=== PATIENT | female | born 1995 | race African-American/Black ===

== ENCOUNTER 2018-12-08 17:17 | Observation (INO) | payer SELFPAY ==
[~2018-12-08] VITALS: Ht 157.5 cm; Wt 77.1 kg
[2018-12-08 19:16] LABS: CLARITY URINE CLOUDY (CLEAR); COLOR URINE YELLOW (YELLOW); KETONES URINE 4+ (NEGATIVE); LEUKOCYTE ESTERASE URINE NEGATIVE (NEGATIVE); NITRITE URINE NEGATIVE (NEGATIVE); OCCULT BLOOD URINE NEGATIVE (NEGATIVE); PH URINE 5.5 (4.5-8.0); PROTEIN URINE NEGATIVE (NEGATIVE); SPECIFIC GRAVITY URINE 1.034 (1.005-1.030)
[2018-12-08] MEDS ORDERED: LACTATED RINGERS 1,000 ML IV SCH (19:30)
[2018-12-08] MEDS ORDERED: PREN-55 MT (20:09)
== END 2018-12-08 20:20 | disposition home or self-care (01) ==
LOC: ER 17:17 → INTOOBSV 18:24 → 8 EST LDRP 18:24
PROVIDERS: ADMIT Obstetrics & Gynecology; ATTEND Obstetrics & Gynecology
DX: O26.892 Other specified pregnancy related conditions, second trimester (principal); R10.9 Unspecified abdominal pain; Z3A.21 21 weeks gestation of pregnancy
CPT/HCPCS: 81003; 99281; G0378; 99285